=== PATIENT | female | born 1965 | race Caucasian/White ===

== ENCOUNTER 2021-05-25 09:08 | Inpatient (IN) | payer MEDICAID, OTHER ==
[~2021-05-25] VITALS: Ht 172.7 cm; Wt 127.0 kg
[2021-05-25] MEDS ORDERED: ASPIRIN 81MG TABLET PO ONE (09:30)
[2021-05-25] MEDS ORDERED: SODIUM CHLORIDE 0.9% 1,000 ML IV ONE (09:30)
[2021-05-25 09:52] LABS: BASOPHILS % 0.8 % (0.0-2.0); EOSINOPHILS % 2.5 % (0.0-5.0); HEMATOCRIT. 35.7 % (36.0-48.0); HEMOGLOBIN. 12.2 g/dL (12.0-16.0); LYMPHOCYTES % 18.1 % (20.0-50.0); MEAN CORPUSCULAR HEMOGLOBIN 27.5 pg (28.0-32.0); MEAN CORPUSCULAR VOLUME 80.7 fL (81.0-99.0); MEAN PLATELET VOLUME 7.8 fl (7.4-10.4); MONOCYTES % 5.1 % (2.0-8.0); NEUTROPHILS % 73.5 % (40.0-76.0); PLATELET 270 x1000/uL (130-400); RED BLOOD CELL COUNT 4.43 mill/uL (4.2-5.4); RED CELL DISTRIBUTION WIDTH 15.7 % (11.6-14.6)
[2021-05-25 09:58] LABS: CHLORIDE 105 mEq/L (98-107)
[2021-05-25] MEDS ORDERED: MORPHINE SULFATE 2 MG/ML CPJ (NOT FOR IM USE) IV PRN (12:00)
[2021-05-25] MEDS ORDERED: DIPHENHYDRAMINE 50MG/ML VIAL IV PRN (12:00)
[2021-05-25] MEDS ORDERED: IPRATROPIUM/ALBUTEROL 0.5-3(2.5)MG/3ML NEB HHN PRN (12:00)
[2021-05-25] MEDS ORDERED: ACETAMINOPHEN 325MG TABLET PO PRN (12:00)
[2021-05-25] MEDS ORDERED: ONDANSETRON HCL 4MG/2ML INJ IV PRN (12:00)
[2021-05-25] MEDS ORDERED: CLONIDINE 0.1MG TABLET PO PRN (12:00)
[2021-05-25 12:13] LABS: CLARITY URINE CLEAR (CLEAR); COLOR URINE YELLOW (YELLOW); KETONES URINE 2+ (NEGATIVE); LEUKOCYTE ESTERASE URINE NEGATIVE (NEGATIVE); NITRITE URINE NEGATIVE (NEGATIVE); OCCULT BLOOD URINE NEGATIVE (NEGATIVE); PROTEIN URINE NEGATIVE (NEGATIVE)
[2021-05-25] MEDS ORDERED: ENOXAPARIN 40MG/0.4ML SYR SUBCUT SCH (12:30)
[2021-05-25] MEDS ORDERED: DEXTROSE 50% WATER 50ML SYRINGE IV PRN (13:30)
[2021-05-25] MEDS ORDERED: GLIP10TA10 PO (16:55)
[2021-05-25] MEDS ORDERED: METF-416 PO (16:57)
[2021-05-25] MEDS ORDERED: AMMO140C2 TOP (17:06)
[2021-05-25] MEDS ORDERED: SERT-422 PO (17:06)
[2021-05-25] MEDS ORDERED: CALA177S9 TP (17:06)
[2021-05-25] MEDS ORDERED: ATOR20TA65 PO (17:06)
[2021-05-25] MEDS: BLOOD SUGAR DIAGNOSTIC STRIP TEST SCH ×2 (17:10→21:03)
[2021-05-25 17:17] VITALS: BP 137/66
[2021-05-25] MEDS: INSULIN LISPRO 100 UNITS/ML SUBCUT SCH ×2 (17:40→21:03)
[2021-05-25] MEDS: METFORMIN HCL 500MG TABLET PO SCH (18:16)
[2021-05-25] MEDS ORDERED: *PATIENT'S OWN MEDICATION STORAGE XX SCH (19:30)
[2021-05-25 20:00] VITALS: BP 156/75
[2021-05-25] MEDS: LISINOPRIL 5MG TABLET PO SCH (20:56)
[2021-05-25] MEDS: METOPROLOL TARTRATE 25MG TABLET PO SCH ×2 (21:00→21:01)
[2021-05-25] MEDS ORDERED: INFLUENZA VACCINE 05/PF 0.5 ML SYRINGE IM ONE (21:00)
[2021-05-25] MEDS ORDERED: ATORVASTATIN CALCIUM 40MG TABLET PO SCH (21:00)
[2021-05-26] VITALS: BP 130/55
[2021-05-26 04:00] VITALS: BP 127/51
[2021-05-26] MEDS: GLIPIZIDE 10MG TABLET PO SCH ×2 (06:26→17:56)
[2021-05-26] MEDS: INSULIN LISPRO 100 UNITS/ML SUBCUT SCH ×3 (06:26→18:00)
[2021-05-26] MEDS: METFORMIN HCL 500MG TABLET PO SCH ×2 (06:27→17:56)
[2021-05-26] MEDS: BLOOD SUGAR DIAGNOSTIC STRIP TEST SCH ×3 (06:27→17:57)
[2021-05-26 08:00] VITALS: BP 112/60
[2021-05-26] MEDS ORDERED: REGADENOSON 0.4 MG/5 ML IV ONE ×2 (08:15→14:00)
[2021-05-26] MEDS ORDERED: ENOXAPARIN 30MG/0.3ML SYR SUBCUT SCH (09:00)
[2021-05-26] MEDS ORDERED: SERTRALINE HCL 50MG TABLET PO SCH (09:00)
[2021-05-26] MEDS ORDERED: ASPIRIN 81MG EC TABLET PO SCH (09:00)
[2021-05-26] MEDS: METOPROLOL TARTRATE 25MG TABLET PO SCH (10:45)
[2021-05-26] MEDS: LISINOPRIL 5MG TABLET PO SCH (10:47)
[2021-05-26 12:00] VITALS: BP 138/60
[2021-05-26 16:00] VITALS: BP 109/54
[2021-05-26] MEDS ORDERED: LISI-186 PO (17:59)
[2021-05-26] MEDS ORDERED: METO25TA6 PO (17:59)
[2021-05-26 18:09] VITALS: BP 109/54
[2021-05-26 21:15] LABS: HEMATOCRIT. 38.7 % (36.0-48.0); HEMOGLOBIN. 12.8 g/dL (12.0-16.0); MEAN CORPUSCULAR HEMOGLOBIN 27.1 pg (28.0-32.0); MEAN CORPUSCULAR VOLUME 81.8 fL (81.0-99.0); MEAN PLATELET VOLUME 8.1 fl (7.4-10.4); PLATELET 313 x1000/uL (130-400); RED BLOOD CELL COUNT 4.74 mill/uL (4.2-5.4); RED CELL DISTRIBUTION WIDTH 16.1 % (11.6-14.6)
[2021-05-26 21:23] LABS: CHLORIDE 104 mEq/L (98-107)
[2021-05-26 21:30] LABS: LDL CHOLESTEROL 42 mg/dL (5-100)
[2021-05-26 21:32] LABS: HDL CHOLESTEROL 40 mg/dL (40-59)
[2021-05-26 23:06] LABS: PLATELET ESTIMATE NORMAL
[2021-06-04] MEDS ORDERED: OMEP20CA14 PO (11:32)
[2021-06-04] MEDS ORDERED: AMOX-494 MT (11:32)
[2021-06-04] MEDS ORDERED: LANTUSUD SUBCUT (11:32)
[2021-06-04] MEDS ORDERED: ABIL5 PO (11:32)
== END 2021-05-26 20:40 | disposition home or self-care (01) | DRG 199 ==
LOC: ER 09:33 → 8WST 10:55 → EDBEDREQ 11:00 → ENRESERV 15:25
PROVIDERS: ADMIT Internal Medicine; ATTEND Internal Medicine
DX: I16.0 Hypertensive urgency (principal); D64.9 Anemia, unspecified; E11.9 Type 2 diabetes mellitus without complications; E78.00 Pure hypercholesterolemia, unspecified; E66.9 Obesity, unspecified; E78.5 Hyperlipidemia, unspecified; I10 Essential (primary) hypertension; Z20.822 Contact with and (suspected) exposure to COVID-19; R07.89 Other chest pain; F17.200 Nicotine dependence, unspecified, uncomplicated; N64.4 Mastodynia; Z88.0 Allergy status to penicillin; Z68.41 Body mass index [BMI] 40.0-44.9, adult
CPT/HCPCS: 36415; 71045; 78452; 80053; 80061; 81003; 82010; 82962; 83036; 84443; 84484; 85025; 87426; 90686; 93005; 93017; 93306; 93970; 99285; A9500; J1200; J1650; J1815; J2405; J2785; J7030